=== PATIENT | male | born 1995 | race Caucasian/White ===

== ENCOUNTER 2019-11-23 19:53 | Emergency (ER) | payer OTHER ==
[2019-11-23 20:08] VITALS: BP 106/78; PULSE 80; TEMP 98.3; BMI 23.4
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
== END 2019-11-23 22:21 | disposition home or self-care (01) ==
LOC: JERFT 19:53
DX: S02.831A Fracture of medial orbital wall, right side, initial encounter for closed fracture (principal)
CPT/HCPCS: 70486-TC; 99284-25